=== PATIENT | male | born 1970 | race Caucasian/White ===

== ENCOUNTER 2023-10-03 12:41 | Outpatient (CLI) | payer BC, SELFPAY ==
--- NOTE | ~2023-10-03 | XR_ITS ---
Clinical Indication: Chronic cough PA and lateral views of the chest: Comparison: None Findings: The lungs are clear, without evidence of focal consolidation or pleural effusion. Cardiome diastinal silhouette is within normal limits. Bones and soft tissues are unremarkable. Impression: Normal chest. Reviewed, dictated and finalized at location . Impression: Normal chest.
== END 2023-10-03 12:42 | disposition home or self-care (01) ==
LOC: ANHIMG 12:43
PROVIDERS: PCP Family Medicine; Visit Provider Physician Assistant Medical
DX: R05.3 Chronic cough (principal)
CPT/HCPCS: 71046

== ENCOUNTER 2024-04-21 09:25 | Day surgery (SDC) | payer BC, SELFPAY ==
[2024-04-21] VITALS (11 sets, daily range): BP systolic 110–156; BP diastolic 62–86; PULSE 75–96; RESP 14–18; TEMP 36.4; O2SAT 97–100
--- NOTE | ~2024-04-21 | US_ITS ---
EXAMINATION: US abdomen limited DATE: 04/21/2024 11:12 INDICATION: Gallstone pancreatitis TECHNIQUE: Multiple grayscale and Doppler ultrasound images of the abdomen were obtained. COMPARISON: None FINDINGS: The pancreatic head and body are normal in appearance. The pancreatic tail is not visualized. Visual ized proximal inferior vena cava is normal. Liver has normal echogenicity and contour, with a smooth surface. No liver lesion identified. No intrahepatic biliary duct dilation suspected. Portal venous f low was seen in the hepatopetal, normal direction and has normal Doppler waveform. The gallbladder is normal in appearance. There is no cholelithiasis. The common bile duct measures 3-4 mm, which is no rmal. Sonographic Workman sign was reported as negative by the tile layer helper. Sonographic Workman sign wa s reported as negative by the tile layer helper.Visualized right kidney demonstrates normal contour and ech ogenicity with no hydronephrosis. IMPRESSION: 1. Normal right upper quadrant ultrasound. Reviewed, dictated and finalized at location A. [employer]
--- NOTE | ~2024-04-21 | CT_ITS ---
EXAMINATION: CT abdomen pelvis w con DATE: 04/21/2024 11:39 INDICATION: Abdominal pain. Pancreatitis. TECHNIQUE: Computed tomography (CT) of the abdomen and pelvis was performed with 100 mL Omnipaque-350 intravenous contrast. Automated exposure control and iterative reconstruction technique were employe d. The dose-length product was 464.07 mGy-cm. COMPARISON: None FINDINGS: Mild scattered discoid atelectasis in the lingula and bilateral lower lobes. Heart size is normal. No pericardial or pleural effusion. Liver, gallbladder, spleen, pancreas, bilateral adrenal glands and kidneys are normal. There is inflammatory stranding surrounding the appendix which is dilated to 12 m m consistent with acute appendicitis. Bowels are otherwise unremarkable with no obstruction. Bladder is normal. Mild prostatomegaly. Small fat-containing left inguinal hernia. No free intraperitoneal ga s or fluid. No pathologically enlarged abdominal or pelvic lymphadenopathy. Transitional sacralized L 5 segment. IMPRESSION: 1. Radiographic uncomplicated acute appendicitis. Dr. Benjamin discussed these findings with Dr. Dr. Fuentes at 11:43 AM. Reviewed, dictated and finalized at location A. [employer]
--- OUTSIDE RECORDS SUMMARY | 2024-04-21 09:27 | XMS_ITS ---
Author Organization [facility] [employer] [facility] Address [facility] [address] [facility] [address] [place] [address] Care Team Providers Care Bobbin Trucker Name Role Phone Rossy WARNER, Hernandez Primary Care Provider Alisia Butt Unavailable [phone] REASON FOR VISIT Refills Medications Medication SIG (Take, Route, Frequency, Duration) Notes Start Date End Date Status buPROPion HCl ER (XL) 300 MG 1 tablet in the morning Orally Once a day for 30 days 02/21/2024 Active Social History Sex Assigned At : Social History Observation Description Sex Assigned At Male Encounters Encounter Location Date Provider Diagnosis [address] [place] [address] 02/21/2024 Alisia Hester Major depressive disorder, recurrent, mild F33.0 Assessments Encounter Date Diagnosis (ICD Code) Assessment Notes Treatment Notes Treatment Clinical Notes Section Notes 02/21/2024 Major depressive disorder, recurrent, mild (ICD-10 - F33.0) Plan Of Treatment Medication Medication Name Sig Start Date Stop Date Notes buPROPion HCl ER (XL) 300 MG 1 tablet in the morning Orally Once a day for 30 days 02/21/2024 Next Appt Details Provider Name:Alisia talavera, 05/09/2024 08:45:00 AM, [address], [facility] [address], [place], [address], Progress Notes * TEJAS FRANKDOB: [birth year] (53 yo M)Acc No.[id number]:02/21/2024 Patient: Keshawn TEJAS VYAS :1970 A ge:53 Y S ex:Male Address:[address] [place] [address] [address], [place], [address] * Refills Start buPROPion HCl ER (XL) Tablet Extended Release 24 Hour, 300 MG, Orally, 30 Tablet, 1 tablet in the morning, Once a day, 30 days, Refills=0 Subjective: * Chief Complaints: * R efills * Medical History: * Surgical History: * Hospitalization/Major Diagno stic Procedure: * Medications: Objective: * Vitals: * Physical Examination: Assessment: * Assessment: 1. 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
--- OUTSIDE RECORDS SUMMARY | 2024-04-21 09:27 | XMS_ITS ---
Author Organization [facility] [employer] Address [address] [facility] [address] [place] [address] Care Team Providers Care Nuts And Bolts Assembler Name Role Phone Rossy WARNER, Hernandez Primary Care Provider Alisia Butt Unavailable [phone] Allergies Allergen (clinical drug ingredient) Drug/Non Drug Allergy documented on EMR Reaction Allergy Type Onset Date Status Substance with penicillin structure and antibacterial mechanism of action (substance) Penicillins Unknown Drug Allergy 06/01/2023 Active REASON FOR VISIT Follow-up for medication management Medications Medication SIG (Take, Route, Frequency, Duration) Notes Start Date End Date Status Propranolol HCl 20 MG Oral 06/01/2023 Active Lisinopril 10 MG Oral 06/01/2023 Ac tive buPROPion HCl ER (XL) 300 MG 1 tablet in the morning Orally Once a day for 30 days Active buPROPion HCl ER (XL) 300 MG 1 tablet in the morning Orally Once a day for 30 days total dose 450 mg daily Active DULoxetine HCl 60 MG 1 capsule Oral Once a day for 30 days Active buPROPion HCl ER (XL) 150 MG 1 tablet in the morning Orally Once a day for 30 days total dose 450 mg daily Active Social History Tobacco Use: Social History Observation Description Date Details (start date - stop date) Never Smoker NA - NA Sex Assigned At : Social History Observation Description Sex Assigned At Male Household Question Answer Notes Marital status: Tobacco Control (Standard) Question Answer Notes Tobacco use: Nonsmoker AUDIT-C (Standard) Question Answer Notes Points 1 Did you have a drink contain ing alcohol in the past year? Yes How often did you have six o r more drinks on one occasion in the past year? Never (0 point) How many drinks did you have on a typical day when you were drinking in the past year? 1 or 2 drinks (0 point) How often did you have a dri nk containing alcohol in the past year? Monthly or less (1 point) Vital Signs Blood pressure systolic 127 mm Hg 04/04/19 25 Blood pressure diastolic 82 mm Hg 025 Heart Rate 78 /min 04/04/2024 Height 73.00 in 04/04/2024 Weight 198 lbs 04/04/2024 BMI 26.12 kg/m2 04/04/2024 Height-cm 185.42 cm 04/04/2024 Weight-kg 89.81 kg 04/04/2024 Encounters Encounter Location Date Provider Diagnosis [facility] [address] [facility] [address] [place] [address] 04/04/2024 Alisia Hester Generalized anxiety disorder F41.1 ; Major depressive disorder, recurrent, mild F33.0 ; Primary insomnia F51.01 and Benign essential HTN I10 Assessments Encounter Date Diagnosis (ICD Code) Assessment Notes Treatment Notes Treatment Clinical Notes Section Notes 04/04/2024 Generalized anxiety disorder (ICD-10 - F41.1) Depression - Reports fatigue and lack of motivation, no drive to do things worsening mood - Plan to increase bupropion XL to 450 mg didn't work out last visit Plan: - increase bupropion XL to 450 mg daily Anxiety - reports overall stable currently Plan: - continue duloxetine 60 mg daily 3. Insomnia - Some difficulty with sleep, attributed to difficulty adhering to routine Plan: - Practice good sleep hygiene - Maintain consistent routine Follow up in 6 weeks, call sooner if needed 04/04/2024 Major depressive disorder, recurrent, mild (ICD-10 - F33.0) Depression - Reports fatigue and lack of motivation, no drive to do things worsening mood - Plan to increase bupropion XL to 450 mg didn't work out last visit Plan: - increase bupropion XL to 450 mg daily Anxiety - reports overall stable currently Plan: - continue duloxetine 60 mg daily 3. Insomnia - Some difficulty with sleep, attributed to difficulty adhering to routine Plan: - Practice good sleep hygiene - Maintain consistent routine Follow up in 6 weeks, call sooner if needed 04/04/2024 Primary insomnia (ICD-10 - F51.01) Depression - Reports fatigue and lack of motivation, no drive to do things worsening mood - Plan to increase bupropion XL to 450 mg didn't work out last visit Plan: - increase bupropion XL to 450 mg daily Anxiety - reports overall stable currently Plan: - continue duloxetine 60 mg daily 3. Insomnia - Some difficulty with sleep, attributed to difficulty adhering to routine Plan: - Practice good sleep hygiene - Maintain consistent routine Follow up in 6 weeks, call sooner if needed 04/04/2024 Benign essential HTN (ICD-10 - I10) Depression - Reports fatigue and lack of motivation, no drive to do things worsening mood - Plan to increase bupropion XL to 450 mg didn't work out last visit Plan: - increase bupropion XL to 450 mg daily Anxiety - reports overall stable currently Plan: - continue duloxetine 60 mg daily 3. Insomnia - Some difficulty with sleep, attributed to difficulty adhering to routine Plan: - Practice good sleep hygiene - Maintain consistent routine Follow up in 6 weeks, call sooner if needed Plan Of Treatment Medication Medication Name Sig Start Date Stop Date Notes buPROPion HCl ER (XL) 300 MG 1 tablet in the morning Orally Once a day for 30 days DULoxetine HCl 60 MG 1 capsule Oral Once a day for 30 days buPROPion HCl ER (XL) 150 MG 1 tablet in the morning Orally Once a day for 30 days Next Appt Details Follow Up: 6 Weeks, Reason: Provider Name:Alisia talavera, 05/09/2024 08:45:00 AM, [address], [facility] [address], [place], [address], Progress Notes * TEJAS FRANKDOB: [birth year] (53 yo M)Acc No.[id number]:04/04/2024 Patient: TEJAS ROBLES Provider: Lloyd Hester :1970 A ge:53 Y S ex:Male Date:04/04/2024 Address:[address] [place] [address], [facility] Pcp:Hernandez Blair MD Subjective: * Chief Complaints: * F ollow-up for medication management * HPI: D epression Screening: PANCHO-7 (2018 Edition) F eeling nervous, anxious, or on edge?Several days, N ot being able to stop or control worrying N ot at all, W orrying too much about different things S everal days, T rouble relaxing S everal , B eing so restless that it is hard to sit still N ot at all, B ecoming easily annoyed or irritable?Not at all, F eeling afraid as if something awful might happen S ever, T otal PANCHO-7 Score 4 , I nterpretation of Total ( 0 to 4) No Anxiety. [place]-Suicide Severity Rating Scale: Suicide Risk (CSRS-screener) i n the past one month Have you wished you were or wished you could go to sleep and not wake up? N o, i n the past one month Have you actually had any thoughts of killing yourself? N o. D epression screening: PHQ-9 L ittle interest or pleasure in doing things S everal , F eeling down, depressed, or hopeless N ot at all, T rouble falling or staying asleep, or sleeping too much M ore than half the days, F eeling tired or having little energy N early every day, P oor appetite or overeating N ot at all, F eeling bad about yourself or that you are a failure, or have let yourself or your family down S ever, T rouble concentrating on things, such as reading the newspaper or watching television S ever, M oving or speaking so slowly that other people could have noticed; or the opposite, being so fidgety or restless that you have been moving around a lot more than usual N ot at all, T houghts that you would be better off or of hurting yourself in some way N ot at all, T otal Score 8 , I nterpretation M ild Depression. I ntervention D epression Screening Findings P ositnati, F ollow-Up for Depression M ental health treatment assessment, Patient follow-up to return when and if necessary, S uicide Risk Assessment Performed 0 04/04/2024, A dditional Evaluation for Depression P sychiatric interview and evaluation, N gagan of the standardized tool used for adult depression screening: P atient Health Questionnaire (PHQ-9). 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 Last visit planned to increase bupropion XL to 450 mg daily. Reports there was a miscommunication at the pharmacy and he never increased that dose. Did not attempt to contact provider for assistance.? Reports fatigue and low motivation continue. Acknowledges difficulty during holiday season, particularly around [place]. Describes struggling with sleep schedule and motivation, characterizing current state as a no motivation rut. M entions driving to [place] over [place] to transport his son and son's girlfriend, which was stressful due to complications with son's haul driver's license documentation. Denies depressed mood, suicidal ideations, or anxiety concerns. Denies concerns with appetite. Denies psychosis, denies symptoms associated with hazel. Medical: has been worked up in past for fatigue by PCP substance update: c affeine decreased since divorce, maybe 1 a day; E KAILA: none; denies cannabis; o ther: denied ongoing notes: tremor: past I have been shaking from first grade, notices with high anxiety, can be gone for months Has tried TMS in past-helpful for depression. No past spravato or ECT in past, though ECT was recommended before he saw Dr marcos. This note is transcribed using speech recognition software. It is a reflection of a visit with the patient. It might have some inaccuracy, including medication names and transcribing errors, though efforts have been made to correct them. * ROS: G eneral / Constitutional: Patient denies f atigue, headache, l ightheadedness.? C ardiovascular: Patient denies c hest pain, dizziness, palpitations. ? G astrointestinal: Patient denies n ausea, vomiting, change in bowel habits.? N eurologic: Patient denies c onfusion, tic, tremor. P sychiatric: Patient denies s uicidal thoughts, auditory / visual hallucinations, delusions, psychosis, involuntary movements. P atient not eligible due to active diagnosis of hypertension: G 9744See HPI. * Medical History: * Surgical History: T onsilectomy/adenoids * Hospitalization/Major Diagno stic Procedure: * Family History: M other: Anxiety Disorder. * Social History: T obacco Use: T obacco Control (Standard) T obacco use: N onsmoker. M igrated Social History: M igrated Social History: Alcohol Intake: None 12/01/2017,Tobacco Years: Never smoker 12/01/2017. D rug/Alcohol: D rugs H ave you used drugs other than those for medical reasons in the past 12 months??No. C affeine I ntake: 1 -2 cups per day. D o you smoke marijuana?: No. Do you drink alcohol?: No. AUDIT-C (Standard) D id you have a drink containing alcohol in the past year??Yes, H ow often did you have six or more drinks on one occasion in the past year? N ever (0 point), H ow many drinks did you have on a typical day when you were drinking in the past year? 1 or 2 drinks (0 point), H ow often did you have a drink containing alcohol in the past year? M onthly or less (1 point), P oints 1 . H ousehold: Keshawn Wheeler arital status: d ivorced. M iscellaneous: S afety issues D o you feel safe at home? Y es, A re there any firearms in the house? N o. 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 N o. S ocial History: Keshawn Wheeler arital Status: D ivorced. * Medications: T akingPropranolol HCl 20 MG Tablet Oral Lisinopril 10 MG Tablet Oral buPROPion HCl ER (XL) 150 MG Tablet Extended Release 24 Hour 1 tablet in the morning Orally Once a day DULoxetine HCl 60 MG Capsule Delayed Release Particles 1 capsule Oral Once a day buPROPion HCl ER (XL) 300 MG Tablet Extended Release 24 Hour 1 tablet in the morning Orally Once a day Medication List reviewed and reconciled with the patientTaking Propranolol HCl 20 MG Tablet Oral Taking Lisinopril 10 MG Tablet Oral Taking buPROPion HCl ER (XL) 150 MG Tablet Extended Release 24 Hour 1 tablet in the morning Orally Once a day Taking DULoxetine HCl 60 MG Capsule Delayed Release Particles 1 capsule Oral Once a day Taking buPROPion HCl ER (XL) 300 MG Tablet Extended Release 24 Hour 1 tablet in the morning Orally Once a day Medication List reviewed and reconciled with the patient * Allergies: P enicillins: Allergy - Onset Date 06/01/2023no[Allergies Verified] Objective: * Vitals: B P:127/82mm Hg, HR:78/min, Wt:198lbs, Wt-k.81 kg, Ht: 73.00 in, Ht-cm: 185.42 cm, BMI:26.12Index, Body Surface Area: 2.15. * Examination: P sychiatry: Appearance: a lert, groomed, a ppears well rested. In no acute distress. Abnormal body movements: n one noted. Affect / mood: f ull range, appropriate. Attention: n ormal in conversation. Attitude: c ooperative, open-minded with collaborative approach. Homicidal ideation: n one. Suicidal ideation: n one. Memory status: n o impairment noted. Degree of awareness of surroundings: w ithin normal limits.? Delusions: n o. Hallucinations: n o. Insight: g ood. Intellectual functioning: n o impairment noted. Judgement: g ood. Orientation: a wake, alert and oriented x 3. Psychomotor activity: w ithin normal range. Speech / language: c lear and coherent, appropriate pitch/modulation, normal rate, volume, and articulation (RVR), proper grammar used. Thought content: a ppropriate. Thought process: i ntact. Assessment: * Assessment: 1. M ajor depressive disorder, recurrent, mild - F33.0 (Primary) 2 . G eneralized anxiety disorder - F41.1 3 . P rimary insomnia - F51.01 4 . B enign essential HTN - I10 Depression - Reports f atigue and lack of motivation, no drive to do things worsening mood - Plan to increase bupropion XL to 450 mg didn't work out last visit Plan: - increase bupropion XL to 450 mg daily Anxiety - reports overall stable currently Plan: - continue duloxetine 60 mg daily 3. Insomnia - Some difficulty with sleep, attributed to difficulty adhering to routine Plan: - Practice good sleep hygiene - Maintain consistent routine Follow up in 6 weeks, call sooner if needed Plan: * Treatment: 2. G eneralized anxiety disorder Refill DULoxetine HCl Capsule Delayed Release Particles, 60 MG, 1 capsule, Oral, Once a day, 30 days, 30 Capsule, Refills 1. * Procedure Codes: 9 6127 BEHAV ASSMT W/SCORE & DOCD/STAND [id number] Pt not shravan d/t act dig [id number] VISIT COMPLEXITY INHERENT TO ONGOING CARE RELATED TO A PATIENT'S SINGLE, SERIOUS CONDITION OR A COMPLEX CONDITION * Preventive Medicine: Counseling: P atient Education: G eneral Education A ssessment and plan reviewed with patient.Educated on diagnoses and recommended treatment options.Educated on risks/benefits of medications, including reason for medications and potential side effects.Alternatives and expected course without treatment reviewed.Education given regarding compliance with medication and expectations regarding adherence to or inconsistent usage of medication.Educated that it can take weeks to see full therapeutic benefits of psychotropic medications and encouraged to trust the process.Educated on good sleep hygiene and importance of adequate sleep on both mental and overall health and well-being.Patient asked appropriate questions, verbalized understanding, and agreed to the recommended treatment and to continue to be followed.Encouraged to reach out if problems, questions, or concerns arise.Educated on suicide hotlines, resources, and safety should suicidal thoughts occur.. * Follow Up: 6 Weeks * Billing Information: * Visit Code: 88826 OFFICE OUTPATIENT VISIT 25 MINUTES DETAILED HISTORY AND EXAM/MODERATE MEDICAL DECISION MAKING. Modifiers: SA * Procedure Codes: 34407 BEHAV ASSMT W/SCORE & DOCD/STAND INSTRUMENT. G9744 Pt not shravan d/t act dig htn. G2211 VISIT COMPLEXITY INHERENT TO ONGOING CARE RELATED TO A PATIENT'S SINGLE, SERIOUS CONDITION OR A COMPLEX CONDITION. * COUNTER CLERK Electronically co-signed by Wilmer Marcos MD on 04/09/2024 at 01:05 PM MEAT COUNTER CLERK Sign off status: Completed Addendum: * true * Provider: Lloyd Hester Date: 0 04/04/2024 Generated for Cassandra sinclair/Eitan/Duglas on: 04/21/2024 09:27 AM MEAT COUNTER CLERK History and Physical Notes * HPI (History of Present Illness) Category Sub-Category Detail Notes Category Not es Depression screening PHQ-9 Little inte rest or pleasure in doing things: Several days Feeling down, depressed, or hopeless: No t at all Trouble falling or staying a sleep, or sleeping too much: More than half the days Feeling tired or having little energy: N early every day Poor appetite or overeating: Not at all Feeling bad about yourself o r that you are a failure, or have let yourself or your family down: Several days Trouble concentrating on thi ngs, such as reading the newspaper or watching television: Several days Moving or speaking so slowly that other people could have noticed; or the opposite, being so fidgety or restless that you have been moving around a lot more than usual: Not at all Thoughts that you would be b romulo off or of hurting yourself in some way: Not at all Total Score: 8 Interpretation: Mild Depression Intervention Depression Screening Findings: P ositve Follow-Up for Depression: [facility] treatment assessment, Patient follow-up to return when and if necessary Suicide Risk Assessment Performed: 04/04 Additional Evaluation for Depression: Ps ychiatric interview and evaluation Name of the standardized too l used for adult depression screening:: Patient Health Questionnaire (PHQ-9) Depression Screening PANCHO-7 (2018 Edition) Feelin g nervous, anxious, or on edge: Several days Not being able to stop or control worryi ng: Not at all Worrying too much about different things : Several days Trouble relaxing: Several days Being so restless that it is hard to sit still: Not at all Becoming easily annoyed or irritable: No t at all Feeling afraid as if something awful lorena ht happen: Several days Total PANCHO-7 Score: 4 Interpretation of Total: (0 to 4) No Anx iety [place]-Suicide Severity Rating Scale Suicide Risk (CSRS-screener) in the past one month Have you wished you were or wished you could go to sleep and not wake up?: No in the past one month Have y ou actually had any thoughts of killing yourself?: No Examination Category Sub-Category Detail Notes Category Not es Psychiatry Appearance: alert, groomed, appears well rested. In no acute distress Attitude: cooperative, open-mi nded with collaborative approach Psychomotor activity: within normal rang e Abnormal body movements: none noted Attention: normal in conversati on Degree of awareness of surroundings: wit hin normal limits Orientation: awake, alert and odette ented x 3 Affect / mood: full range, appropri ate Speech / language: clear and coherent, appropriate pitch/modulation, normal rate, volume, and articulation (RVR), proper grammar used Insight: good Judgement: good Thought process: intact Thought content: appropriate Suicidal ideation: none Homicidal ideation: none Intellectual functioning: no impairment noted Memory status: no impairment noted Delusions: no Hallucinations: no
--- OUTSIDE RECORDS SUMMARY | 2024-04-21 09:27 | XMS_ITS | Clinical Summary ---
Author Organization [address] Address [address] [place] [address] [place] [address] Care Team Providers Care Mailhouse Operator Name Role Phone Hernandez Blair MD Primary Care Provider Allergies No known active allergies Medications buPROPion XL (WELLBUTRIN XL) 300 mg 24 hr tablet Take 1 tablet (300 mg total) by mouth every morning 03/22/[address] (CYMBALTA) 30 mg capsule Take 1 capsule (30 mg total) by mouth daily 01/08/2024 Active lisinopriL (PRINIVIL,ZESTR IL) 10 mg tablet Take 1 tablet (10 mg total) by mouth daily 01/11/2024 Active propranoloL (INDERAL) 20 mg tablet Take 1 tablet (20 mg total) by mouth 3 (three) times a day 12/31/2023 Active Active Problems Problem Noted Date Diagnosed Date 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 Assessment & Plan (03/29/2024 2:37 PM DELINQUENT TAX COLLECTOR): SALES DEVELOPMENT SPECIALIST Presbyopia Previous LASIK OU Symptoms of tearing OD Did not recommend enhancement surgery 20/25 UCVA OU at distance Recommend recheck vision in 1 year Return if symptoms become worse at distance Discussed inc need for readers following surgery Encounters Date Type Department Care Team Description 03/29/2024 1:30 PM DELINQUENT TAX COLLECTOR Office Visit [facility] ([facility]) [address] [place] [address] 2nd Floor, [address] [place] [address] Danilo Hopkins, OD 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 (Primary Dx) from Last 3 Months Social History Tobacco Use Types Packs/Day Years Used Date Smoking Tobacco: Never Smokeless Tobacco: Never Tobacco Cessation:Counseling Given: Not Answered Sex and Gender Information Value Date Recorded Sex Assigned at Not on file Legal Sex Male 3:31 PM DELINQUENT TAX COLLECTOR Gender Identity Not on file Sexual Orientation Not on file Obstetrics History Plan of Treatment Health Maintenance Due Date Last Done Comments Colon Cancer Screening-Colonoscopy 1970 Depression Screening 1970 Hepatitis C Screening 1970 Prostate Cancer Screening-PSA 1970 DTaP/Tdap/Td Vaccine (1 - Tdap) 1981 Hepatitis B Screening 1988 Regular Well Visit/Exam 18-64 1988 Zoster Vaccine (2 of 2) 11/16/2022 09/21/2022 Covid-19 Vaccine ( - 2023-2 5 season) 2023 07/09/2020, 06/18/2020 Influenza Vaccine (#1) 2023 Pneumococcal vaccine <65 Aged Out No longer eligible based on patient's age to complete this topic Care Teams Mailhouse Operator Relationship Specialty Start Date End Date Hernandez Blair MD [address] [place] [address] PCP - General Family Medicine 03/29/24
--- OUTSIDE RECORDS SUMMARY | 2024-04-21 09:27 | XMS_ITS | Referral Summary ---
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) from Last 3 Months Allergies No known active allergies Medications buPROPion [...] astigmatism Assessment & Plan (03/29/2024 2:37 PM GREENHOUSE WORKER): 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 Presbyopia Previous LASIK OU Symptoms of tearing OD Did not recommend enhancement surgery 20/25 UCVA OU at distance Recommend recheck vision in 1 year Return if symptoms become worse at distance Discussed inc need for readers following surgery Social History Tobacco Use Types Packs/Day Years Used Date Smoking Tobacco: Never Smokeless Tobacco: Never Tobacco Cessation:Counseling Given: Not Answered Sex and Gender Information Value Date Recorded Sex Assigned at Not on file Legal Sex Male 3:31 PM GREENHOUSE WORKER Gender Identity Not on file Sexual Orientation Not on file Plan of Treatment Not on file Care Teams Extruding Department Supervisor Relationship Specialty Start Date End Date Hernandez Blair MD [address] [place], [place] [id number] PCP - General Family Medicine 03/29/24
--- OUTSIDE RECORDS SUMMARY | 2024-04-21 09:28 | XMS_ITS ---
Author Organization [facility] Address [facility] [address] [facility] [address] [place] [address] Care Team Providers Care Superintendent Construction Name Role Phone Rossy WARNER, Hernandez Primary Care Provider Alisia Butt Unavailable [phone] Social History Sex Assigned At : Social History Observation Description Sex Assigned At Male Encounters Encounter Location Date Provider Diagnosis [facility] [address] [place] [address] [facility] [address] [facility] [address] [place] [address] 03/22/2024 Alisia Hester Plan Of Treatment Next Appt Details Provider Name:Alisia talavera, 05/09/2024 08:45:00 AM, [address], [facility] [address], [place], [address], Progress Notes * TEJAS FRANKDOB: [birth year] (53 yo M)Acc No.[id number]:03/22/2024 Patient: Keshawn LILLIAM TEJAS :1970 A ge:53 Y S ex:Male Address:[address] [place] [address], [place], [address] * true * Date: Generated for Cassandra sinclair/Eitan/eTransmitting on: 0 04/21/2024 09:27 AM STITCHER 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
[2024-04-21 10:05] LABS: Basophils Absolute Auto 0.1 K/mm3 (0.0-0.1); Basophils Percent Auto 0.4 % (0.2-1.2); Eosinophils Absolute Auto 0.1 K/mm3 (0-0.3); Eosinophils Percent Auto 0.6 % (0-4.4); Hematocrit 46.8 % (42.0-52.0); Hemoglobin 16.7 g/dL (14.0-18.0); Immature Granulocyte Absolute 0.03 K/mm3 (0.00-0.031); Immature Granulocyte Percent A 0.3 % (0-0.5); Lymphocytes Absolute Auto 1.37 K/mm3 (0.9-3.2); Lymphocytes Percent Auto 11.6 % (18.3-44.2); Mean Corpuscular HGB Conc 35.7 g/dl (32-36); Mean Corpuscular Hemoglobin 31.4 pg (26-34); Mean Platelet Volume 8.9 fl (7.4-10.4); Monocytes Absolute Auto 0.7 K/mm3 (0.1-0.6); Monocytes Percent Auto 5.7 % (2.6-8.5); Neutrophils Absolute Auto 9.6 K/mm3 (1.3-6.7); Neutrophils Percent Auto 81.4 % (45.5-73.1); Platelet Count Result 244 k/mm3 (150-375); Red Blood Count 5.32 M/mm3 (4.6-6.20); White Blood Count 11.8 K/mm3 (4.5-10.0)
--- OUTSIDE RECORDS SUMMARY | 2024-04-21 10:17 | XMS_ITS | Patient Health Record ---
Author Organization [facility] As [employer] - is now [employer] Address [address] [facility] [address] [place] [address] Care Team Providers Care Instructional Facilitator Name Role Phone Rossy WARNER, Hernandez Primary Care Provider UnavailAlisia Soares Unavailable [phone] WildaMaria Fernanda max Unavailable [phone] Migration, Provider Unavailable Unavailable Allergies Allergen (clinical drug ingredient) Drug/Non Drug Allergy documented on EMR Reaction Allergy Type Onset Date Status Substance with penicillin structure and antibacterial mechanism of action (substance) Penicillins Unknown Drug Allergy 06/01/2023 Active Reason For Referral No Information Medications Medication SIG (Take, Route, Frequency, Duration) [...] days total dose 450 mg daily Active buPROPion HCl ER (XL) 300 MG 1 tablet in the morning Orally Once a day for 30 days total dose 450 mg daily Active DULoxetine HCl 60 MG 1 capsule Oral Once a day for 30 days Active Immunizations Vaccine Route Administration Date Status Comme nts Pfizer Biontech Covid-19 Vac cine 2nd dose Unknown 06/18/2020 Administered Pfizer Biontech Covid-19 Vac cine 2nd dose Unknown 07/09/2020 Administered Zoster Unknown 02/28/2022 Administered Social History Tobacco Use: Social History Observation [...] past year? Monthly or less (1 point) Section Notes: Social History Substance Use Do you or have you ever smoked tobacco?: Never smoker How much tobacco do you smoke?: None Do you or have you ever used e-cigarettes or vape?: Never used electronic cigarettes Do you or have you ever used smokeless tobacco?: Never used smokeless tobacco How much tobacco do you chew?: none What was the date of your most recent tobacco screening?: 06/01/2023 Has tobacco cessation counseling been provided?: No What is your level of alcohol consumption?: None How many years have you consumed alcohol?: 0 Do you use any illicit or recreational drugs?: No Which illicit or recreational drugs have you used?: Tried cbd pills but haven't done that for over a year since that's an issue for RAMY Have you used IV drugs?: No What is your level of caffeine consumption?: Occasional Education and Occupation What is the highest grade or level of school you have completed or the highest degree you have received?: Master's degree (e.g., MA, MS, Yaima, MEd, AIRPORT OPERATIONS MANAGER, KOLBY) Are you currently employed?: No Who is your employer?: [employer] Marriage and Sexuality What is your relationship status?: Are you sexually active?: No Do you use protection during sex?: No How many children do you have?: 3 Home and Environment Are there any guns present in your home?: No Advance Directive Do you have an advance directive?: No Do you have a medical power of senior data warehouse architect?: No Social History Substance Use Do you or have you ever smoked tobacco?: Never smoker How much tobacco do you smoke?: None Do you or have you ever used e-cigarettes or vape?: Never used electronic cigarettes Do you or have you ever used smokeless tobacco?: Never used smokeless tobacco How much tobacco do you chew?: none What was the date of your most recent tobacco screening?: 06/01/2023 Has tobacco cessation counseling been provided?: No What is your level of alcohol consumption?: None How many years have you consumed alcohol?: 0 Do you use any illicit or recreational drugs?: No Which illicit or recreational drugs have you used?: Tried cbd pills but haven't done that for over a year since that's an issue for RAMY Have you used IV drugs?: No What is your level of caffeine consumption?: Occasional Education and Occupation What is the highest grade or level of school you have completed or the highest degree you have received?: Master's degree (e.g., ALONDRA, , Yaima, Barbara, AIRPORT OPERATIONS MANAGER, KOLBY) Are you currently employed?: No Who is your employer?: [employer] Marriage and Sexuality What is your relationship status?: Are you sexually active?: No Do you use protection during sex?: No How many children do you have?: 3 Home and Environment Are there any guns present in your home?: No Advance Directive Do you have an advance directive?: No Do you have a medical power of senior data warehouse architect?: No Social History Substance Use Do you or have you ever smoked tobacco?: Never smoker How much tobacco do you smoke?: None Do you or have you ever used e-cigarettes or vape?: Never used electronic cigarettes Do you or have you ever used smokeless tobacco?: Never used smokeless tobacco How much tobacco do you chew?: none What was the date of your most recent tobacco screening?: 06/01/2023 Has tobacco cessation counseling been provided?: No What is your level of alcohol consumption?: None How many years have you consumed alcohol?: 0 Do you use any illicit or recreational drugs?: No Which illicit or recreational drugs have you used?: Tried cbd pills but haven't done that for over a year since that's an issue for RAMY Have you used IV drugs?: No What is your level of caffeine consumption?: Occasional Education and Occupation What is the highest grade or level of school you have completed or the highest degree you have received?: Master's degree (e.g., ALONDRA, , Yaima, Barbara, AIRPORT OPERATIONS MANAGER, KOLBY) Are you currently employed?: No Who is your employer?: [employer] Marriage and Sexuality What is your relationship status?: Are you sexually active?: No Do you use protection during sex?: No How many children do you have?: 3 Home and Environment Are there any guns present in your home?: No Advance Directive Do you have an advance directive?: No Do you have a medical power of senior data warehouse architect?: No Social History Substance Use Do you or have you ever smoked tobacco?: Never smoker How much tobacco do you smoke?: None Do you or have you ever used e-cigarettes or vape?: Never used electronic cigarettes Do you or have you ever used smokeless tobacco?: Never used smokeless tobacco How much tobacco do you chew?: none What was the date of your most recent tobacco screening?: 06/01/2023 Has tobacco cessation counseling been provided?: No What is your level of alcohol consumption?: None How many years have you consumed alcohol?: 0 Do you use any illicit or recreational drugs?: No Which illicit or recreational drugs have you used?: Tried cbd pills but haven't done that for over a year since that's an issue for RAMY Have you used IV drugs?: No What is your level of caffeine consumption?: Occasional Education and Occupation What is the highest grade or level of school you have completed or the highest degree you have received?: Master's degree (e.g., MA, MS, Yaima, MEd, AIRPORT OPERATIONS MANAGER, KOLBY) Are you currently employed?: No Who is your employer?: [employer] Marriage and Sexuality What is your relationship status?: Are you sexually active?: No Do you use protection during sex?: No How many children do you have?: 3 Home and Environment Are there any guns present in your home?: No Advance Directive Do you have an advance directive?: No Do you have a medical power of senior data warehouse architect?: No Problems Problem Type SNOMED Code ICD Code Onset Dates Problem Status W/U Status Risk Notes Problem Mild recurrent major depression (31099158) Major depressive disorder, recurrent, mild (F33.0) 4 Active confirmed Problem Generalized anxiety disorder (95910148) Generalized anxiety disorder (F41.1) 4 Active confirmed Problem Primary insomnia (2575875) Primary insomnia (F51.01) 4 Active confirmed Vital Signs Heart Rate 78 /min 04/04/2024 Blood pressure diastolic 82 mm Hg 04/04/2024 Height-cm 185.42 cm 04/04/2024 Weight-kg 89.81 kg 04/04/2024 Height 73.00 in 04/04/2024 Blood pressure systolic 127 mm Hg 04/04/2024 Weight 198 lbs 04/04/2024 BMI 26.12 kg/m2 04/04/2024 Encounters Encounter Location Date Provider Diagnosis [facility] [employer] [place] [address] [address] 06/01/2023 Maria Fernandarosie Marquez Generalized anxiety disorder F41.1 ; Primary insomnia F51.01 ; Major depressive disorder, recurrent, mild F33.0 and Other fatigue R53.83 [facility] [address] [address] 09/07/2023 Maria Fernanda Jimmy Generalized anxiety disorder F41.1 ; Major depressive disorder, recurrent, mild F33.0 ; Primary insomnia F51.01 and Other fatigue R53.83 [facility] [place] [address] [facility] [address] [address] 10/19/2023 Maria Fernanda Jimmy Generalized anxiety disorder F41.1 ; Major depressive disorder, recurrent, mild F33.0 ; Primary insomnia F51.01 and Other fatigue R53.83 [facility] [place] [address] [facility] [address] [address] 12/07/2023 Maria Fernanda Marquez Generalized anxiety disorder F41.1 ; Major depressive disorder, recurrent, mild F33.0 ; Primary insomnia F51.01 and Other fatigue R53.83 [facility] [employer] [place] [address] [address] 01/18/2024 Alisia Hester Generalized anxiety disorder F41.1 ; Major depressive disorder, recurrent, mild F33.0 and Primary insomnia F51.01 [facility] [place] [address] [address] [address] 04/04/2024 Alisia Hester Generalized anxiety disorder F41.1 ; Major depressive disorder, recurrent, mild F33.0 ; Primary insomnia F51.01 and Benign essential HTN I10 [facility] [employer] [place] [address] [facility] [address] [place] [address] [place] [address] 07/16/2023 Provider Migration [facility] [employer] [facility] [address] [facility] [address] [facility] [address] [place] [address] 07/17/2023 Provider Migration [facility] [employer], [place] [address] [facility] [address] [address] 02/21/2024 Alisia Hester Major depressive disorder, recurrent, mild F33.[address] [address] 03/22/2024 Alisia Hester Assessments Encounter Date Diagnosis (ICD Code) Assessment Notes Treatment Notes Treatment Clinical Notes Section Notes 02/21/2024 Major depressive disorder, recurrent, mild (ICD-10 - F33.0) 04/04/2024 Major depressive disorder, recurrent, mild (ICD-10 [...] 6 weeks, call sooner if needed 04/04/2024 Generalized anxiety disorder (ICD-10 - F41.1) [...] in 6 weeks, call sooner if needed 10/19/2023 Generalized anxiety disorder (ICD-10 - F41.1) cont duloxetine 90mg daily, take qhs (60+30) recommend therapy note: has propranolol and lisinopril from PCP (HTN) 12/07/2023 Generalized anxiety disorder (ICD-10 - F41.1) decrease duloxetine to 60mg daily recommend therapy note: has propranolol and lisinopril from PCP (HTN) 01/18/2024 Generalized anxiety disorder (ICD-10 - F41.1) Assessment and PLan: 1. anxiety - reports overall stable currently Plan: - continue duloxetine 60 mg daily 2. depression - depressed mood overall stable, but lingering fatigue and lack of motivation, possible coorelations with season Plan: - increase Wellbutrin XL to 450 mg daily 3. Insomnia - stable as of now Plan: - cont. medication regimen, daily routine, and sleep hygiene Monitor symptoms and for any side effect devlopement from medications Follow up in 6 weeks, call sooner if needed 06/01/2023 Major depressive disorder, recurrent, mild (ICD-10 - F33.0) 06/01/2023 Generalized anxiety disorder (ICD-10 - F41.1) 06/01/2023 Primary insomnia (ICD-10 - F51.01) 06/01/2023 Other fatigue (ICD-10 - R53.83) 09/07/2023 Major depressive disorder, recurrent, mild (ICD-10 - F33.0) start bupropion SR 100mg qam SNRI still blah feeling discuss options, increase SNRI or decrease-he does not think medication side effect, or adjunct. Possibly bupropion, pros/cons. Shared decision to try add bupropion. If improvement, may consider decrease duloxetine to 60mg in future. review r/b/se recommend therapy f/u 6 wks, earlier if concerns 09/07/2023 Generalized anxiety disorder (ICD-10 - F41.1) cont duloxetine 90mg daily, take qhs (60+30) recommend therapy note: has propranolol and lisinopril from PCP (HTN) 09/07/2023 Primary insomnia (ICD-10 - F51.01) stable practice good sleep hygiene 10/19/2023 Major depressive disorder, recurrent, mild (ICD-10 - F33.0) increase bupropion SR to 150mg qam SNRI having some improvement, vitals WNL discuss option, decision to try small increase, review r/b/se. If increase further may change to XL and/or consider decrease duloxetine. recommend therapy f/u 6 wks, earlier if concerns 12/07/2023 Major depressive disorder, recurrent, mild (ICD-10 - F33.0) increase bupropion to XL 300mg qam SNRI had initial improvement, some more sx this week, consider if seasonal discuss options, plan to increase NDRI/change XL and decrease duloxetine; review r/b/se/discont inuation have recommended therapy f/u 6 wks, earlier if concerns 04/04/2024 Primary insomnia (ICD-10 - F51.01) Depression [...] in 6 weeks, call sooner if needed 01/18/2024 Major depressive disorder, recurrent, mild (ICD-10 - F33.0) Assessment and PLan: 1. anxiety - reports overall stable currently Plan: - continue duloxetine 60 mg daily 2. depression - depressed mood overall stable, but lingering fatigue and lack of motivation, possible coorelations with season Plan: - increase Wellbutrin XL to 450 mg daily 3. Insomnia - stable as of now Plan: - cont. medication regimen, daily routine, and sleep hygiene Monitor symptoms and for any side effect devlopement from medications Follow up in 6 weeks, call sooner [...] in 6 weeks, call sooner if needed 10/19/2023 Primary insomnia (ICD-10 - F51.01) stable practice good sleep hygiene 01/18/2024 Primary insomnia (ICD-10 - F51.01) Assessment and PLan: 1. anxiety - reports overall stable currently Plan: - continue duloxetine 60 mg daily 2. depression - depressed mood overall stable, but lingering fatigue and lack of motivation, possible coorelations with season Plan: - increase Wellbutrin XL to 450 mg daily 3. Insomnia - stable as of now Plan: - cont. medication regimen, daily routine, and sleep hygiene Monitor symptoms and for any side effect devlopement from medications Follow up in 6 weeks, call sooner if needed 12/07/2023 Primary insomnia (ICD-10 - F51.01) stable practice good sleep hygiene 09/07/2023 Other fatigue (ICD-10 - R53.83) has had workup with PCP 12/07/2023 Other fatigue (ICD-10 - R53.83) has had workup with PCP 10/19/2023 Other fatigue (ICD-10 - R53.83) has had workup with PCP Plan Of Treatment Next Appt Details Provider Name:Alisia Donaldo talavera, 05/09/2024 08:45:00 AM, [address], [address], [place], [address], Insurance Providers Payer Name Payer Address Payer Phone Subscriber Number Group Number Insured Name Patient Relationship to Insured Coverage Start Date Coverage End Date [facility] P[facility] [address] [place] [address] [id number] TEJAS FRANK Self - patient is the insured Medical (General) History Medical History History ICD Code Problems: Fatigue Generalized anxiety disorder Long-term drug therapy Mild recurrent major depression Obesity Primary insomnia Suicidal thoughts Tremor Past Psychiatric History: Anxiety Disord er,Panic Disorder undefined Benign essential hypertension I10 Vitamin D deficiency E55.9 Surgical History Surgery Date(Month/Year) Tonsilectomy/adenoids
--- OUTSIDE RECORDS SUMMARY | 2024-04-21 10:17 | XMS_ITS | Clinical Summary ---
Author Organization [address] Address [address] [place] [address] [place] [address] Care Team Providers Care Java Golden Gate Developer Name Role Phone Hernandez Blair MD Primary [...] astigmatism Assessment & Plan (03/29/2024 2:37 PM JEWELRY SALES COORDINATOR): ELEVATED GUARD Presbyopia Previous LASIK OU Symptoms of tearing OD Did not recommend enhancement surgery 20/25 UCVA OU at distance Recommend recheck vision in 1 year Return if symptoms become worse at distance Discussed inc need for readers following surgery Encounters Date Type Department Care Team Description 03/29/2024 1:30 PM JEWELRY SALES COORDINATOR Office Visit [facility] ([facility]) [address] [place] [address] [address]nd Floor, [address] [place] [address] Danilo Hopkins, OD 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
--- OUTSIDE RECORDS SUMMARY | 2024-04-21 10:17 | XMS_ITS | Referral Summary ---
Author Organization [address] Address [address] [place] [address] [place] [address] Care Team Providers Care Refrigerated National Truck Driver Name Role Phone Hernandez Blair MD Primary Care Provider Encounters Date Type Department Care Team Description 03/29/2024 1:30 PM CARDIOVASCULAR OPERATING ROOM NURSE Office Visit [facility] ([facility]) [address] [place] [address] [address] Floor, [address] [place] [address] Danilo Hopkins, OD Myopia of both [...] astigmatism Assessment & Plan (03/29/2024 2:37 PM CARDIOVASCULAR OPERATING ROOM NURSE): SCHOOL ATHLETIC DIRECTOR Presbyopia Previous LASIK OU Symptoms of tearing [...] on file Legal Sex Male 3:31 PM CARDIOVASCULAR OPERATING ROOM NURSE Gender Identity Not on file Sexual Orientation Not on file Plan of Treatment Not on file Care Teams Refrigerated National Truck Driver Relationship Specialty Start Date End Date Hernandez Blair MD [address] [place], [place] [id number] PCP - General Family Medicine 03/29/24
[2024-04-21 10:19] LABS: Alanine Aminotransferase 19 U/L (6-50); Albumin Level 4.4 g/dL (3.5-5.1); Alkaline Phosphatase 67 U/L (38-126); Anion Gap 11 mmol/L (4-12); Aspartate Amino Transferase 20 U/L (17-59); Bilirubin,Total 1.8 mg/dL (0.2-1.3); Blood Urea Nitrogen 16 mg/dL (9-20); Calcium 9.6 mg/dL (8.4-10.2); Carbon Dioxide 24 mmol/L (22-30); Chloride 101 mmol/L (98-107); Estimated CRCL calculation 83 ml/min; Estimated Glomerular Filt Rate > 60; Glucose 114 mg/dL (65-110); Lipase 876 U/L (23-300); Sodium 136 mmol/L (137-145)
--- NOTE | 2024-04-21 10:53 | ED.ABDPAIN ---
HPI - Abdominal Pain General Chief Complaint: Abdominal Pain Stated Complaint: right side abd pain Time Seen by Provider: 04/21/24 10:05 History of Present Illness HPI narrative: 53-year-old otherwise healthy male presenting to the emergency room with sudden onset pain in his epigastrium region that radiated towards his right flank and right lower quadrant. Patient states he has no history of any abdominal surgeries, no history of pancreatitis, no gallstone history to his knowledge. Does not drink alcohol. Was otherwise in his normal state of health. Pain was starting at approximately 9:00 p.m. last night in his epigastrium and was dull and mild, later migrated to his right lower quadrant around midnight. Tender to palpation in certain positions. No nauseous, vomiting, diarrhea or constipation. Denies any chest pain shortness a breath. No fevers or chills. No urinary complaints. Related Data Home Medications ?Medication ?Instructions ?Recorded ?Confirmed ?Last Taken ?Type bupropion HCl 100 mg tablet,12 hr 300 mg PO DAILY 03/12/24 03/12/24 Unknown History sustained-release duloxetine 60 mg capsule,delayed 60 mg PO HS 03/12/24 04/21/24 04/20/24 History release (Cymbalta) bupropion HCl 150 mg tablet,12 hr mg PO 04/21/24 04/21/24 History sustained-release bupropion HCl 300 mg 24 hr tablet, mg PO 04/21/24 04/21/24 History extended release Allergies Allergy/AdvReac Type Severity Reaction Status Date / Time Penicillins Allergy Unknown Unknown Verified 04/21/24 09:41 Review of Systems Review of Systems: As reviewed above in HPI [facility] Past Medical History Medical History BMI 25.0-25.9,adult Family History Family History Mother Family history of diabetes mellitus in first degree relative Social History Social History Smoking status: Never smoker Alcohol intake: never Exam Narrative: GENERAL: [Well-appearing, well-nourished, and in no acute distress.] HEAD: [Normocephalic, atraumatic.] EYES: [PERRLA and EOMI.] ENT: Nares clear, no rhinorrhea or epistaxis. Mucous membranes moist. NECK: Supple. CHEST: [Clear to auscultation. No respiratory distress.] HEART: [Regular rate and rhythm]. No murmur heard. [Normal peripheral pulses.] ABDOMEN: [Soft, nondistended], focal tenderness to palpation over the periumbilical area and right lower quadrant on the right side, no overlying skin changes or discoloration., [No rigidity or guarding] no CVA tenderness. EXTREMITIES: Normal range of motion. [No edema.] SKIN: Warm, dry, no rash. NEURO: [No focal deficits]. Alert and oriented [x3.] PSYCH: [Normal mood and affect.] Course Vital Signs Vital signs: Vital Signs Temperature 36.4 C L 04/21/24 09:26 Pulse Rate 87 04/21/24 09:26 Respiratory Rate 18 04/21/24 09:26 Blood Pressure 140/73 04/21/24 09:26 Pulse Oximetry 99 04/21/24 09:26 Oxygen Delivery Room Air 04/21/24 09:26 Temperature 36.4 C L 04/21/24 09:26 Pulse Rate 75 04/21/24 11:08 Respiratory Rate 16 04/21/24 11:08 Blood Pressure 125/80 04/21/24 11:08 Pulse Oximetry 98 04/21/24 11:08 Oxygen Delivery Room Air 04/21/24 09:26 MDM - Abdominal Pain MDM Narrative Medical decision making narrative: 53-year-old male presenting with epigastric pain radiating towards his right flank and right lower quadrant. He has tenderness focally in the right lower quadrant presently in the periumbilical region. States his pain is 5/10 but when he is not moving or being palpated his pain is less. Denies any nauseousness, vomiting or diarrhea. No fevers or chills. Vital signs reassuring in all within normal limits. Suspicion presently is for potential pancreatitis versus appendicitis given the migratory path, suspicion for cholecystitis or gallstones are also possible. Low likelihood other infectious pathology such as inflammatory bowel. He was otherwise in his normal state of health with no recent changes to his medications or diet. Workup ordered this time including a CBC, CMP, lipase, urinalysis. Patient was offered analgesia medications but he states that he feels okay at this and will hold off. Patient provided fluid bolus. Lipase came back markedly elevated 876 suspicious for pancreatitis possibly secondary to the obstructing gallstone versus other underlying etiology. Will obtain a CT of the abdomen pelvis and right upper quadrant ultrasound for further delineation. Remaining workup shows a leukocytosis of 11.8, normal hemoglobin, normal platelet count. Electrolytes within normal limits, normal renal function panel. Mildly elevated bilirubin 1.8 otherwise unremarkable LFTs, lipase elevated at 876. Urinalysis without any infection. Abdominal ultrasound shows no acute findings. No gallstones or dilated ducts. CT scan shows acute appendicitis with a dilated fat stranding appendix. I called and spoke to the general surgeon on-call Dr. James and we went over patient's imaging studies, clinical assessment and plan of care. Recommendations for surgical intervention. Patient was started on Rocephin and Flagyl given his antibiotic allergy to penicillin. Given a dose of Dilaudid. Patient was made aware of the plan of care and updated. Repeat evaluation shows stable vital signs and improvement in pain. Patient will be taken to the operating room from the ER and disposition per their team. Medical Records Attestation: I reviewed the patient's medical records. Lab Data Attestation: I reviewed the patient's lab results. 04/21/24 09:58 04/21/24 09:58 Labs: Lab Results 04/21/24 04/21/24 Range/Units 09:58 11:19 WBC 11.8 H (4.5-10.0) K/mm3 RBC 5.32 (4.6-6.20) M/mm3 Hgb 16.7 (14.0-18.0) g/dL Hct 46.8 (42.0-52.0) % MCV 88.0 (80-100) fl MCH 31.4 (26-34) pg MCHC 35.7 (32-36) g/dl RDW 12.0 (11.5-14.5) % Plt Count 244 (150-375) k/mm3 MPV 8.9 (7.4-10.4) fl Immature Gran % (Auto) 0.3 (0-0.5) % Neut % (Auto) 81.4 H (45.5-73.1) % Lymph % (Auto) 11.6 L (18.3-44.2) % [place] % (Auto) 5.7 (2.6-8.5) % Eos % (Auto) 0.6 (0-4.4) % Baso % (Auto) 0.4 (0.2-1.2) % Lymph # (Auto) 1.37 (0.9-3.2) K/mm3 [place] # (Auto) 0.7 H (0.1-0.6) K/mm3 Eos # (Auto) 0.1 (0-0.3) K/mm3 Baso # (Auto) 0.1 (0.0-0.1) K/mm3 Abs Immat Gran (auto) 0.03 (0.00-0.031) K/mm3 Absolute Neuts (auto) 9.6 H (1.3-6.7) K/mm3 Absolute Nucleated RBC 0.000 (0.0-0.012) K/mm3 Nucleated RBC % 0.0 (0.0-0.2) % Sodium 136 L (137-145) mmol/L Potassium 4.0 (3.4-5.0) mmol/L Chloride 101 (98-107) mmol/L Carbon Dioxide 24 (22-30) mmol/L Anion Gap 11 (4-12) mmol/L BUN 16 (9-20) mg/dL Creatinine 1.03 (0.7-1.3) mg/dL Estim Creat Clear Calc 83 ml/min Estimated GFR > 60 (59 - ) Glucose 114 H (65-110) mg/dL Calcium 9.6 (8.4-10.2) mg/dL Total Bilirubin 1.8 H (0.2-1.3) mg/dL AST 20 (17-59) U/L ALT 19 (6-50) U/L Alkaline Phosphatase 67 (38-126) U/L Total Protein 7.0 (6.3-8.2) g/dL Albumin 4.4 (3.5-5.1) g/dL Lipase 876 H (23-300) U/L Urine Color Yellow (Yellow) Urine Appearance Clear (Clear) Urine pH 6.5 (5.0-9.0) Ur Specific [place] 1.013 (1.001-1.035) Urine Protein Negative (Negative) mg/dL Urine Glucose (UA) Negative (Negative) mg/dL Urine Ketones Negative (Negative) mg/dL Ur Blood (Man) Negative (Negative) Urine Nitrate Negative (Negative) Urine Bilirubin Negative (Negative) Urine Urobilinogen 1.0 (<2.0) mg/dL Leukocyte Esterase Rfl Negative (Negative) LORI/UL Imaging Data Attestation: I personally reviewed and interpreted this imaging study as follows: My impression: Impressions Abdomen Ultrasound 04/21/24 11:17 IMPRESSION: 1. Normal right upper quadrant ultrasound. Abdomen/Pelvis CT 04/21/24 11:41 IMPRESSION: 1. Radiographic uncomplicated acute appendicitis. Dr. Benjamin discussed these findings with Dr. Dr. Fuentes at 11:43 AM. Radiologist's impression: ITS Impressions Abdomen Ultrasound 04/21/24 11:17 IMPRESSION: 1. Normal right upper quadrant ultrasound. Abdomen/Pelvis CT 04/21/24 11:41 IMPRESSION: 1. Radiographic uncomplicated acute appendicitis. Dr. Benjamin discussed these findings with Dr. Dr. Fuentes at 11:43 AM. Discharge Plan Discharge Clinical Impression: Acute appendicitis, Abdominal pain Patient Disposition: Still a Patient Condition: Stable Time of Disposition: 12:46
[2024-04-21] MEDS: LACTATED RINGERS 1,000 ML 999 ML IV CONT (11:14)
[2024-04-21 11:27] LABS: Add Urine Microscopic? NO; Appearance Urine Clear (Clear); Bilirubin Urine Negative (Negative); Blood Urine Negative (Negative); Color Urine Yellow (Yellow); Glucose Urine UA Negative (Negative); Ketones Urine Negative (Negative); Leukocyte Esterase Ur Negative LEU/UL (Negative); Nitrate Urine Negative (Negative); Protein Urine Negative (Negative); Specific Grav Ur 1.013 (1.001-1.035); pH Urine 6.5 (5.0-9.0)
--- OUTSIDE RECORDS SUMMARY | 2024-04-21 12:04 | XMS_ITS | Referral Summary ---
Author Organization [address] Address [address] [place] [address] [place] [address] Care Team Providers Care Asbestos Siding Mechanic Name Role Phone Hernandez Blair MD Primary Care Provider Encounters Date Type Department Care Team Description 03/29/2024 1:30 PM BRICK AND BLOCK MASON Office Visit [facility] (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
--- OUTSIDE RECORDS SUMMARY | 2024-04-21 12:04 | XMS_ITS | Clinical Summary ---
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
[2024-04-21] MEDS: HYDROmorphone HCL INJ (*CRX) 1 MG/ML SYR 0.5 MG IV PUSH (12:27)
--- NOTE | 2024-04-21 12:30 | PM.IMHP ---
H&P: HPI History of Present Illness Date/Time: 04/21/24 12:30 Chief Complaint: Acute appendicitis Narrative: The patient is a 53-year-old male presenting to the emergency department complaining of severe right lower quadrant abdominal pain. The patient reports that the episode started yesterday with more periumbilical upper abdominal pain. The patient reports that over the day and overnight the pain has migrated to the right lower quadrant. He reports the pain is dull, however becomes sharp with movement. The patient denies previous similar episodes. The patient also reports decreased appetite and nausea. The patient denies any previous abdominal surgeries. Workup in the emergency department, including CT scan, is significant for acute appendicitis. Review of Systems Review of Systems: All systems reviewed & are unremarkable except as noted in HPI and below PMFSH Past Medical History Medical History BMI 25.0-25.9,adult Family History Family History Mother Family history of diabetes mellitus in first degree relative Social History Social History Smoking status: Never smoker Alcohol intake: never Meds Home Medications and Allergies Home Medications ?Medication ?Instructions ?Recorded ?Confirmed ?Type propranolol 20 mg tablet 20 mg PO TID #270 tabs 04/07/23 04/21/24 Rx bupropion HCl 100 mg tablet,12 hr 300 mg PO DAILY 03/12/24 03/12/24 History sustained-release duloxetine 60 mg capsule,delayed 60 mg PO HS 03/12/24 04/21/24 History release (Cymbalta) lisinopril 10 mg tablet 10 mg PO DAILY #90 tabs 04/12/24 04/21/24 Rx bupropion HCl 150 mg tablet,12 hr mg PO 04/21/24 History sustained-release bupropion HCl 300 mg 24 hr tablet, mg PO 04/21/24 History extended release Allergies Allergy/AdvReac Type Severity Reaction Status Date / Time Penicillins Allergy Unknown Unknown Verified 04/21/24 09:41 Vital Signs Vital Signs - 24 hr 04/21/24 09:26 04/21/24 09:30 04/21/24 11:08 Temperature 36.4 C L Pulse Rate 87 90 75 Respiratory Rate 18 16 16 Blood Pressure 140/73 156/86 H 125/80 Pulse Oximetry 99 97 98 Oxygen Delivery Room Air Exam Const: General: cooperative, comfortable and uncomfortable HENMT: Head: normal to inspection, normocephalic and atraumatic Eyes: General: appearance normal, both eyes and all related structures Neck: Neck: normal visual inspection, full ROM and no lymphadenopathy Resp: Auscultation: clear to auscultation bilaterally Cardio: Rate: regular rate Rhythm: regular rhythm GI: Inspection: normal to inspection GI Palp: Yes abdominal tenderness, Yes Soft to palpation, Yes Tenderness to palpation present (GI), Yes Guarding due to palpation present (GI) and No Rigid due to palpation Other: Focal peritonitis in the right lower quadrant Skin: General skin exam: normal color and no rashes or lesions noted Neuro: General: patient oriented x3 Extrem: General: normal to inspection and full ROM H&P: Results Labs Labs: Short CBC 04/21/24 Range/Units 09:58 WBC 11.8 H (4.5-10.0) K/mm3 Hgb 16.7 (14.0-18.0) g/dL Hct 46.8 (42.0-52.0) % Plt Count 244 (150-375) k/mm3 BMP 04/21/24 09:58 Sodium 136 L Potassium 4.0 Chloride 101 Carbon Dioxide 24 BUN 16 Creatinine 1.03 Glucose 114 H Calcium 9.6 Liver Function 04/21/24 Range/Units 09:58 Total Bilirubin 1.8 H (0.2-1.3) mg/dL AST 20 (17-59) U/L ALT 19 (6-50) U/L Alkaline Phosphatase 67 (38-126) U/L Albumin 4.4 (3.5-5.1) g/dL Urine 04/21/24 Range/Units 11:19 Urine Color Yellow (Yellow) Urine Appearance Clear (Clear) Urine pH 6.5 (5.0-9.0) Ur Specific [place] 1.013 (1.001-1.035) Urine Protein Negative (Negative) mg/dL Urine Glucose (UA) Negative (Negative) mg/dL Imaging CT scan - abdomen: My impression: Acute uncomplicated appendicitis Assessment and Plan Assessment and plan (1) Acute appendicitis: Code(s): K35.80 - Unspecified acute appendicitis Status: Acute Assessment and Plan: OR for urgent appendectomy, NPO, IV antibiotics
--- NOTE | 2024-04-21 12:30 | PC.NURSE ---
Report given to ANTHONY Chavez in the OR. All questions answered. Pt. currently getting undressed. Surgeon Dr. Bloom already came to bedside to update pt. and his Mom. OR to come get pt. from ED.
--- NOTE | 2024-04-21 12:40 | WPDHPUPDATE1 ---
History and Physical Update Update Date/Time: 04/21/24 12:40 History and Physical has been reviewed, including an updated exam of the patient. There are NO changes in the patient's condition. Risks, benefits, and alternatives have been discussed and questions answered. Patient agrees to proceed with procedure.
--- NOTE | 2024-04-21 12:47 | WPDANESEPPF ---
Anes - Initial Pre Proc Eval Procedure: Operation Date: 04/21/24 13:00 Proposed Procedures p Laparoscopic Appendectomy - Dee Dee Arizmendi MD Date/Time: 04/21/24 12:47 Surgeon: Dee Dee Arizmendi MD Pre Op Diagnosis: right side abd pain Patient Data Age: 53 Gender: M Height: 1.85 m Weight: 88 kg Last Vital Signs Temp 36.4 C L 04/21/24 09:26 Pulse 75 04/21/24 11:08 Resp 16 04/21/24 11:08 BP 125/80 04/21/24 11:08 Pulse Ox 98 04/21/24 11:08 O2 Del Method Room Air 04/21/24 09:26 Allergies Allergy/AdvReac Type Severity Reaction Status Date / Time Penicillins Allergy Unknown Unknown Verified 04/21/24 09:41 Home Medications ?Medication ?Instructions ?Recorded ?Confirmed ?Type propranolol 20 mg tablet 20 mg PO TID #270 tabs 04/07/23 04/21/24 Rx bupropion HCl 100 mg tablet,12 hr 300 mg PO DAILY 03/12/24 03/12/24 History sustained-release duloxetine 60 mg capsule,delayed 60 mg PO HS 03/12/24 04/21/24 History release (Cymbalta) lisinopril 10 mg tablet 10 mg PO DAILY #90 tabs 04/12/24 04/21/24 Rx bupropion HCl 150 mg tablet,12 hr mg PO 04/21/24 History sustained-release bupropion HCl 300 mg 24 hr tablet, mg PO 04/21/24 History extended release docusate sodium 100 mg capsule 100 mg PO BID #30 caps 04/21/24 Rx (Colace) hydrocodone 5 mg-acetaminophen 325 1 tablet PO Q6H PRN pain #30 tabs 04/21/24 Rx mg tablet Laboratory Tests 04/21/24 04/21/24 09:58 11:19 WBC 11.8 H K/mm3 (4.5-10.0) RBC 5.32 M/mm3 (4.6-6.20) Hgb 16.7 g/dL (14.0-18.0) Hct 46.8 % (42.0-52.0) MCV 88.0 fl (80-100) MCH 31.4 pg (26-34) MCHC 35.7 g/dl (32-36) RDW 12.0 % (11.5-14.5) Plt Count 244 k/mm3 (150-375) MPV 8.9 fl (7.4-10.4) Immature Gran % (Auto) 0.3 % (0-0.5) Neut % (Auto) 81.4 H % (45.5-73.1) Lymph % (Auto) 11.6 L % (18.3-44.2) [place] % (Auto) 5.7 % (2.6-8.5) Eos % (Auto) 0.6 % (0-4.4) Baso % (Auto) 0.4 % (0.2-1.2) Lymph # (Auto) 1.37 K/mm3 (0.9-3.2) [place] # (Auto) 0.7 H K/mm3 (0.1-0.6) Eos # (Auto) 0.1 K/mm3 (0-0.3) Baso # (Auto) 0.1 K/mm3 (0.0-0.1) Abs Immat Gran (auto) 0.03 K/mm3 (0.00-0.031) Absolute Neuts (auto) 9.6 H K/mm3 (1.3-6.7) Absolute Nucleated RBC 0.000 K/mm3 (0.0-0.012) Nucleated RBC % 0.0 % (0.0-0.2) Sodium 136 L mmol/L (137-145) Potassium 4.0 mmol/L (3.4-5.0) Chloride 101 mmol/L (98-107) Carbon Dioxide 24 mmol/L (22-30) Anion Gap 11 mmol/L (4-12) BUN 16 mg/dL (9-20) Creatinine 1.03 mg/dL (0.7-1.3) Estim Creat Clear Calc 83 ml/min Estimated GFR > 60 (59 - ) Glucose 114 H mg/dL (65-110) Calcium 9.6 mg/dL (8.4-10.2) Total Bilirubin 1.8 H mg/dL (0.2-1.3) AST 20 U/L (17-59) ALT 19 U/L (6-50) Alkaline Phosphatase 67 U/L (38-126) Total Protein 7.0 g/dL (6.3-8.2) Albumin 4.4 g/dL (3.5-5.1) Lipase 876 H U/L (23-300) Urine Color Yellow (Yellow) Urine Appearance Clear (Clear) Urine pH 6.5 (5.0-9.0) Ur Specific [place] 1.013 (1.001-1.035) Urine Protein Negative mg/dL (Negative) Urine Glucose (UA) Negative mg/dL (Negative) Urine Ketones Negative mg/dL (Negative) Ur Blood (Man) Negative (Negative) Urine Nitrate Negative (Negative) Urine Bilirubin Negative (Negative) Urine Urobilinogen 1.0 mg/dL (<2.0) Leukocyte Esterase Rfl Negative LORI/UL (Negative) Patient hx anesthesia problems: none Family hx anesthesia problems: none Results Review: All pre-operative results and documents have been reviewed as part of the pre-operative evaluation. [facility] Past Medical History Medical History BMI 25.0-25.9,adult Family History Family History Mother Family history of diabetes mellitus in first degree relative Social History Social History Smoking status: Never smoker Alcohol intake: never Anes - Eval Final PreProcedure Day of Procedure 04/21/24 12:47 Patient weight: normal Heart: regular rate and rhythm Lungs: clear to auscultation Airway: Mallampati scale class II Neurological: alert and oriented Last oral intake: >/= 8 hours ASA classification: II Emergent: yes Anesthetic plan: proceed Anesthesia type and monitoring: general ETT and standard monitoring Results Review: All pre-operative results and documents have been reviewed as part of the pre-operative evaluation. Informed Consent: The patient's anesthetic plan and its attendant risks and benefits were discussed with the patient/family/POA. Questions were solicited and answers provided to the satisfaction of the patient/family/POA.
[2024-04-21] MEDS: BUPIVACAINE/EPINEPHRINE 0.5% 50 ML VIAL 30 ML INFILTRATE (13:26)
--- NOTE | 2024-04-21 13:32 | P.OP_ITS ---
Procedure Note - Detailed Date of Procedure 04/21/24 Pre-op Diagnosis Acute appendicitis Post-op Diagnosis Same Procedure Performed laparoscopic appendectomy Surgeon Dee Dee Arizmendi MD Anesthesia General Indications 53-year-old male presenting to the emergency department with acute appendicitis, confirmed by CT scan. Findings acute appendicitis no evidence of perforation Description of Procedure The patient was taken to the operating room and placed in the supine position. After adequate induction of general anesthesia, the patient was prepped and draped in the normal sterile fashion. A time-out was then done to verify the patient's identity, as well as the procedure being performed. I began by making a 5 mm incision in the infraumbilical region, through this a Veress needle was placed in the peritoneal cavity. CO2 gas was then insufflated and after adequate pneumoperitoneum was achieved the Veress needle was removed. Then placed a 5 mm Optiview trocar under direct visualization into the peritoneal cavity. I then insufflated through this trocar site and the endoscope was placed into the trocar. Under direct visualization, placed 2 further 5 mm suprapubic port as well as an additional 12 mm port in the left lower abdomen. At this point identified the cecum, I retracted the cecum both medially and superiorly allowing me to expose the appendix. The appendix was noted to be very dilated and inflamed especially towards the tip. The appendix was noted to be very adherent to the right lateral sidewall as well as the ileum. I was able to bluntly dissect the appendix from these adhesions. I then was able to locate the base of the appendix with the cecum. I created a window with the [place] dissector between the appendix itself and the mesoappendix. I then transected the mesoappendix with a white vascular staple load. The Endo-JOSEFINA was then reloaded with a blue staple load and I transected the base of the appendix. Once the specimen was completely detached, an endo-pouch was placed into the 12 mm port site and the specimen was removed through the endo-pouch. The appendiceal specimen will be sent to pathology for further review. I then copiously irrigated the right lower quadrant. Hemostasis was noted at both staple lines no other pathology was seen in this area. I then moved the camera to the suprapubic port to check our its port of entry. No iatrogenic injury or other pathology was noted in the upper abdomen. I then closed the 12 mm port site with a Dru code and 0 Vicryl suture under direct visualization. At this point, the abdomen was desufflated and all ports were removed. All port sites were closed with 4 Monocryl subcuticular suture. Dermabond was placed on all wounds. The patient tolerated the procedure well and was extubated in the ope rating room postop. He will be sent to the recovery room in stable condition. Estimated Blood Loss 10 Drains No Packing No Pathology Yes Complications No immediate complications Condition Stable Disposition PACU [facility] Billing Surgery - Charge Forward: Surgery Billing
[2024-04-21] MEDS: LACTATED RINGERS 1,000 ML 30 ML IV CONT ×2 (13:45→13:54)
== END 2024-04-21 15:40 | disposition home or self-care (01) ==
LOC: ANHED 10:15 → ANHSURGERY 12:03
PROVIDERS: Emergency Medicine; Emergency Provider Student in an Organized Health Care Education/Training Program; PCP Family Medicine; Visit Provider Surgery
PROC: 0DTJ4ZZ Resection of Appendix, Percutaneous Endoscopic Approach (ICD-10-PCS; CPT 44970; principal; 2024-04-21 13:00)
DX: K35.32 Acute appendicitis with perforation, localized peritonitis, and gangrene, without abscess (principal); K56.41 Fecal impaction; Z79.891 Long term (current) use of opiate analgesic
CPT/HCPCS: 44970; 36415; 74177; 76705; 80053; 81003; 83690; 85025; 88304; 96361; 96365; 96375; 99285; A9270; J0696; J1100; J1171; J1596; J1885; J2003; J2250; J2405; J2704; J3010; J7030; J7120; Q9967